=== PATIENT | male | born 1960 | race Caucasian/White ===

== ENCOUNTER 2017-03-27 03:42 | Observation (INO) | payer OTHER ==
[~2017-03-27 03:42] MED LIST: ASPIRIN325 MG PO; BREO ELLIPTA 11 EACH INH; LISINOPRIL10 MG PO; METAMUCIL1042 GM PO; NORCO 10/325 TA1 TA1 PO; NP THYROID PO; SYNTHROID200 MC1 PO
[2017-03-27 04:08] LABS: BASOPHILS 0 % (0-2); EOSINOPHILS 0.1 % (0-7); HEMATOCRIT 44.3 % (42.0-54.0); HEMOGLOBIN 15.4 g/dL (13.5-17.5); IMMATURE GRANULOCYTES 0.3 % (0-5); LYMPHOCYTES 8.6 % (15-50); MCH 33.1 pg (26.0-34.0); MCHC 34.8 g/dL (31.0-37.0); MCV 95.3 fL (80.0-100.0); MEAN PLATELET VOLUME 10.4 fL (7.4-10.4); MONOCYTES 5.9 % (2-11); NEUTROPHILS 85.1 % (40-80); PLATELET COUNT 187 10x3/uL (130-400); RBC 4.65 10x6/uL (4.20-6.10); RDW 12.9 % (11.5-14.5); WBC 14.5 10x3/uL (4.8-10.8)
[2017-03-27 04:41] LABS: ALBUMIN 3.7 g/dL (3.4-5.0); ALKALINE PHOSPHATASE 82 U/L (46-116); ALT (SGPT) 36 U/L (10-68); BILIRUBIN - TOTAL 0.37 mg/dL (0.2-1.3); CALC OSMOLALITY 283 mosm/kg (275-300); CALCIUM 8.9 mg/dL (8.5-10.1); CARBON DIOXIDE 30.1 mmol/L (21.0-32.0); CHLORIDE - SERUM 104 mmol/L (98-107); CHOL - HDL RATIO 5.6 ratio (2.3-4.9); CHOLESTEROL, TOTAL 156 mg/dL (0-200); CKMB 0.7 U/L (0.0-3.6); CREATINE KINASE 117 UL (21-232); CREATININE - SERUM 1.3 mg/dL (0.6-1.3); GLUCOSE 117 mg/dL (74-106); HDL CHOLESTEROL 28 mg/dL (32-96); POTASSIUM - SERUM 4.2 mmol/L (3.5-5.1); PROTEIN - SERUM 7.6 g/dL (6.4-8.2); SODIUM 142 mmol/L (136-145); THYROID STIMULATING HORMONE 13.71 uIU/mL (0.36-3.74); TRIGLYCERIDE 460 mg/dL (30-200); UREA NITROGEN 12 mg/dL (7-18); eGFR NON AFRICAN AMERICAN 60 mL/min (90-120)
[2017-03-27 04:45] LABS: TROPONIN-I < 0.017 ng/mL (0.000-0.060)
[2017-03-27 05:41] VITALS: BP 108/71; BMI 36.2
[2017-03-27 08:00] VITALS: BP 92/54
[2017-03-27 08:25] LABS: CKMB 0.3 U/L (0.0-3.6); CREATINE KINASE 107 UL (21-232); TROPONIN-I < 0.017 ng/mL (0.000-0.060)
[2017-03-27 12:00] VITALS: BP 104/62
--- NOTE | 2017-03-27 13:17 | NUR ---
IV AND TELEMETRY DCD. DC PLANS GIVEN. UNDERSTANDING VOICED. ESCORTED TO CAR BY W/C.
--- NOTE | 2017-04-08 16:56 | DS ---
PATIENT:ZAHEER WATSON :58 MEDICAL RECORD: [id number] DISCHARGE SUMMARY ADMISSION DATE: 03/27/17 DISCHARGE DATE: 03/27/17 DIAGNOSIS: Chest pain. HISTORY AND HOSPITAL COURSE: This is a gentleman who presents with chest pain; however, EKG is normal. Troponin is normal. He had a normal cardiac catheterization within the last year, most likely this is GI. No other cardiac workup is necessary. TRANSINT:[id number] Voice Confirmation ID: [id number] DOCUMENT ID: [id number] BRIT YA MD at 1656 CC: [id number] DICTATION DATE: 03/27/17 1408 NETWORK ENGINEERING ADVISOR: 03/28/17 0258 DIS IN 03/27/17 [id number] [place] [address]
--- NOTE | 2017-04-08 16:56 | HP ---
PATIENT: ZAHEER WATSON MEDICAL RECORD: [id number] ACCOUNT: [id number] LOCATION:[address] : 58 ADMISSION DATE: 03/27/17 HISTORY AND PHYSICAL EXAMINATION DIAGNOSES: 1. Chest pain. 2. Hypothyroidism on replacement. HISTORY: This is a gentleman who had a normal cardiac catheterization within the past year. He got a chest discomfort, was more epigastric, felt like he had to burp, discomfort became quite severe. His EKG is normal. His troponins are normal. PHYSICAL EXAMINATION: GENERAL APPEARANCE: Well-nourished, well-developed, appears stated age. Level of distress, comfortable. PSYCHIATRIC: Mental status, alert, normal affect. Orientation, oriented to time, place and person. EYES: Lids and conjunctiva, noninjected. No discharge, no pallor. ENT: Lips, teeth, gums, normal dentition. Oropharynx, no cyanosis, no pallor. NECK: Carotid arteries, bilateral normal upstroke, no bruits, no thrills. JUGULAR VEINS: No jugular venous pressure or distention. CERVICAL LYMPH NODES: Nontender, nonenlarged. THYROID: Not enlarged. Nontender. No nodules. LUNGS: Respiratory effort, unlabored. CHEST: Normal curvature. No thoracic deformity. No chest wall tenderness. Percussion, resonant. Auscultation, clear. No wheezes, no rales, no rhonchi. CARDIOVASCULAR: Precordial exam, nondisplaced. No heaves or pericardial thrills. Rate and rhythm, regular. Heart sounds, normal S1, normal S2. No S3, no gallop, no rub. Systolic murmur, not heard. Diastolic murmur, not heard. EXTREMITIES: No cyanosis, no edema. Peripheral pulses, full and equal in all extremities, except as noted. No bruits appreciated. ABDOMEN: Soft, nondistended. Normal aorta. No bruit. Nontender. No masses. Liver, nontender, no hepatomegaly. Spleen, nontender, no splenomegaly. MUSCULOSKELETAL: No joint tenderness. No joint swelling. No erythema. NEUROLOGICAL: Normal gait, normal strength, normal tone. SKIN: Warm and dry. REVIEW OF SYSTEMS: The patient reports easy bruising but reports no swollen glands. The patient reports no fever, no night sweats, no significant weight gain, no significant weight loss. No significant exercise tolerance. The patient reports no dry eyes, no irritation, no vision change. Patient reports no difficulty hearing and no ear pain. Patient reports no frequent nose bleeds or nose and sinus problems. Patient reports on arm pain on exertion. No shortness of breath while lying down. No history of heart murmur. Patient reports no cough, no wheezing or coughing up blood. Patient reports no abdominal pain, no vomiting. Normal appetite. No diarrhea and not vomiting blood. No nausea and no constipation. Patient reports no incontinence. No difficulty urinating. No hematuria. No increased frequency. Patient reports no muscle aches. No weakness, no arthralgias, no back pain. No swelling of the extremities. Patient reports no abnormal mole, no jaundice, no rashes. Reports no loss of consciousness. No weakness and no numbness. No seizures, dizziness, or headaches. The patient reports no depression, no sleep disturbance, feeling safe in a relationship and no alcohol abuse. Patient reports on fatigue. HISTORY AND PHYSICAL [id number] ZAHEER WATSON Reports no runny nose or sinus pressure. No itching, no hives, and no frequent sneezing. OVERALL IMPRESSION: Most likely this is secondary to GI and noncardiac with normal cardiac catheterization, normal troponin and normal EKG. At this time, no other cardiac workup is necessary. TRANSINT:[id number] Voice Confirmation ID: [id number] DOCUMENT ID: [id number] BRIT YA MD at 1656 CC: [id number] DICTATION DATE: 03/27/17 1408 GLASS BLOWER: 03/27/17 1721 DIS IN 03/27/17 [id number] [place] [address]
== END 2017-03-27 13:17 | disposition home or self-care (01) ==
LOC: D.ER 03:42 → OBSVTIME 04:44 → D.M2 04:44
PROVIDERS: Emergency Medicine; ADMIT Internal Medicine Interventional Cardiology
DX: R07.89 Other chest pain (principal); E03.9 Hypothyroidism, unspecified

== ENCOUNTER → 2017-04-11 08:09 | Outpatient (CLI) | payer OTHER ==
[2017-03-27 05:41] VITALS: BMI 36.2
[~2017-04-11 08:09] MED LIST changes: +BAYER CHEWABLE81 MG PO
== END | disposition home or self-care (01) ==
LOC: D.CT 08:09
DX: R91.8 Other nonspecific abnormal finding of lung field (principal); R93.8 Abnormal findings on diagnostic imaging of other specified body structures

== ENCOUNTER → 2017-05-24 09:51 | Outpatient (CLI) | payer OTHER ==
[2017-05-24 10:48] LABS: BASOPHILS 0.6 % (0-2); HEMATOCRIT 44.4 % (42.0-54.0); HEMOGLOBIN 15.5 g/dL (13.5-17.5); IMMATURE GRANULOCYTES 0.3 % (0-5); MCH 32.9 pg (26.0-34.0); MCHC 34.9 g/dL (31.0-37.0); MCV 94.3 fL (80.0-100.0); MEAN PLATELET VOLUME 10.4 fL (7.4-10.4); MONOCYTES 7.1 % (2-11); PLATELET COUNT 186 10x3/uL (130-400); RBC 4.71 10x6/uL (4.20-6.10); RDW 12.7 % (11.5-14.5); WBC 6.9 10x3/uL (4.8-10.8)
[2017-05-26 04:14] LABS: ANGIOTENSIN CONVERTING ENZYME 44 U/L (14-82)
[2017-06-01 17:11] LABS: FUNGAL - ASP FLAVUS Negative (Neg:<1:1); FUNGAL - ASP NIGER Negative (Neg:<1:1); FUNGAL - ASPER FUMIGATUS Negative (Neg:<1:1)
== END | disposition home or self-care (01) ==
LOC: D.CT 09:51 → D.OPS 10:00 → D.CT 11:00
PROVIDERS: Internal Medicine Cardiovascular Disease
DX: R91.8 Other nonspecific abnormal finding of lung field (principal)

== ENCOUNTER 2017-05-27 08:43 | Outpatient (CLI) | payer OTHER ==
[~2017-05-27] VITALS: Ht 180.3 cm; Wt 122.7 kg
[~2017-05-27 08:43] MED LIST changes: -BAYER CHEWABLE81 MG PO
[2017-05-27 10:36] LABS: BASOPHILS 0.3 % (0-2); EOSINOPHILS 2.8 % (0-7); HEMATOCRIT 45.8 % (42.0-54.0); HEMOGLOBIN 15.9 g/dL (13.5-17.5); IMMATURE GRANULOCYTES 0.3 % (0-5); LYMPHOCYTES 34.3 % (15-50); MCH 32.7 pg (26.0-34.0); MCHC 34.7 g/dL (31.0-37.0); MCV 94.2 fL (80.0-100.0); MEAN PLATELET VOLUME 10.6 fL (7.4-10.4); MONOCYTES 8.8 % (2-11); NEUTROPHILS 53.5 % (40-80); PLATELET COUNT 182 10x3/uL (130-400); RBC 4.86 10x6/uL (4.20-6.10); RDW 12.9 % (11.5-14.5); WBC 6.4 10x3/uL (4.8-10.8)
[2017-05-27] MEDS ORDERED: BAYER CHEWABLE81 MG PO (10:41)
[2017-05-27 10:44] LABS: APTT 30.4 SECONDS (22.8-39.4); INR 0.99 (0.85-1.17); PROTIME 12.7 SECONDS (11.6-15.0)
[2017-05-27 10:49] VITALS: BP 128/89; Ht 180.3 cm; Wt 122.7 kg
--- NOTE | 2017-05-27 12:45 | NUR ---
FULL LIQUID DIET SERVED.
--- NOTE | 2017-05-27 13:15 | NUR ---
TOLERATED FULL LIQUID DIET. IV REMOVED INTACT. DISCHARGE INSTRUCTIONS GIVEN, VOICED UNDERSTANDING.
[2017-05-28 19:08] LABS: AFB SPECIMEN PROCESSING Concentration (())
[2017-05-30 10:11] LABS: FUNGUS STAIN Final report (())
[2017-06-07 11:10] LABS: VIRAL - RESULT No virus isolated. (())
--- NOTE | 2017-06-09 14:06 | OP ---
PATIENT NAME: ZAHEER SAVAGE MEDICAL RECORD: [id number] :58 LOCATION:[facility] ADMISSION DATE: SURGEON: JALYN GRIJALVA MD DATE OF OPERATION: 05/27/2017 PROCEDURE: Fiberoptic bronchoscopy. INDICATION: Mr. Savage is a 57-year-old gentleman who has an abnormal CT scan with multiple new pulmonary nodules, some of them were decreasing in size. Fiberoptic bronchoscopy was carried out to inspect the airway and to obtain specimen for culture and sensitivity. MONITORING: EKG, pulse, and blood pressure were monitored throughout the procedure. MEDICATIONS: Versed 4 mg IV in divided doses, fentanyl 50 mcg IV, morphine 5 mg IM, and atropine 0.6 mg IM. PROCEDURE IN DETAIL: After obtaining the conscious sedation, the fiberoptic bronchoscope was passed through the mouth. The epiglottis was normal. The vocal cords were normal, moving equally on phonation. The pyriform sinuses were normal. The main trachea was normal. The jaylen was sharp. The right main bronchus was subsegment to the right upper lobe, right lower lobe within normal range. There were some bronchitic changes. The left main bronchus was normal, subsegment to the left upper lobe lingula. There was severe bronchitic change and they bled easily by touching by the bronchoscope. The left lower segment was within normal. There were also bronchitic changes. There were no endobronchial lesions or mass was seen. Overall, the patient tolerated the procedure very well. Specimen washing was obtained and sent for routine culture and sensitivity, AFB and fungus, viral, and cytology. TRANSINT:[id number] Voice Confirmation ID: [id number] DOCUMENT ID: [id number] JALYN GRIJALVA MD at 1406 CC: [id number] DICTATION DATE: 05/27/17 1151 DRILLER MACHINE: 05/27/17 1309 DEP CLI 05/27/17 [id number] [place] [address]
[2017-06-24 15:20] LABS: FUNGUS MYCOLOGY CULTURE Final report (())
[2017-07-15 13:17] LABS: ACID FAST CULTURE Negative (()); ACID FAST SMEAR Negative (())
== END 2017-05-27 13:25 | disposition home or self-care (01) ==
LOC: D.OPS 08:43
PROVIDERS: Internal Medicine Pulmonary Disease
DX: J40 Bronchitis, not specified as acute or chronic (principal); Z01.812 Encounter for preprocedural laboratory examination

== ENCOUNTER → 2017-09-23 15:48 | Outpatient (CLI) | payer OTHER ==
[2017-05-27 10:49] VITALS: BMI 37.7
[~2017-09-23 15:48] MED LIST changes: +BAYER CHEWABLE81 MG PO
== END | disposition home or self-care (01) ==
LOC: D.CT 15:48
DX: R91.8 Other nonspecific abnormal finding of lung field (principal)

== ENCOUNTER 2019-07-09 15:27 | Observation (INO) | payer BC ==
[~2019-07-09] VITALS: Ht 180.3 cm; Wt 118.2 kg
[2019-07-09] MEDS ORDERED: COZAAR25 MG PO (15:40)
[2019-07-09 15:54] LABS: BASOPHILS 0.6 % (0-2); HEMATOCRIT 47.9 % (42.0-54.0); IMMATURE GRANULOCYTES 0.3 % (0-5); LYMPHOCYTES 29.7 % (15-50); MCH 33.1 pg (26.0-34.0); MCHC 35.5 g/dL (31.0-37.0); MCV 93.2 fL (80.0-100.0); MEAN PLATELET VOLUME 10.1 fL (7.4-10.4); MONOCYTES 10.4 % (2-11); PLATELET COUNT 198 10x3/uL (130-400); RBC 5.14 10x6/uL (4.20-6.10); RDW 12.7 % (11.5-14.5); WBC 7.9 10x3/uL (4.8-10.8)
[2019-07-09 16:09] LABS: APTT 43.3 SECONDS (22.8-39.4); INR 1.01 (0.85-1.17); PROTIME 13.3 SECONDS (11.6-15.0)
[2019-07-09 16:10] LABS: CALC OSMOLALITY 272 mosm/kg (275-300); CALCIUM 9.3 mg/dL (8.5-10.1); CARBON DIOXIDE 31.2 mmol/L (21.0-32.0); CHLORIDE - SERUM 102 mmol/L (98-107); GLUCOSE 107 mg/dL (74-106); POTASSIUM - SERUM 3.9 mmol/L (3.5-5.1); SODIUM 137 mmol/L (136-145); UREA NITROGEN 11 mg/dL (7-18); eGFR NON AFRICAN AMERICAN 81 mL/min (90-120)
[2019-07-09 16:28] LABS: ALBUMIN 4.3 g/dL (3.4-5.0); ALKALINE PHOSPHATASE 78 U/L (30-120); ALT (SGPT) 32 U/L (10-68); BILIRUBIN - TOTAL 0.44 mg/dL (0.2-1.3); CKMB 0.7 U/L (0.0-3.6); CREATINE KINASE 135 UL (21-232); MAGNESIUM - SERUM 2.1 mg/dL (1.8-2.4); PROTEIN - SERUM 8.7 g/dL (6.4-8.2); TROPONIN-I < 0.017 ng/mL (0.000-0.060)
--- NOTE | 2019-07-09 16:43 | NUR ---
REPORTS RELIEF AFTER FIRST NITRO ADMINSTRATION. DOES NOT WANT ANY ADDITIONAL NITRO AT THIS TIME.
[2019-07-09 18:06] VITALS: BP 120/86; Ht 180.3 cm; Wt 118.2 kg
--- NOTE | 2019-07-09 19:20 | NUR ---
RECEIVED REPORT, WILL ASSUME CARE OF PT, SITTING UP IN BED, AT BEDSIDE, DENIES ANY NEEDS AT THIS TIME, BED IS LOW, SRX2, CALL LIGHT IN REACH, WILL CONTINUE PLAN OF CARE
[2019-07-09 20:44] VITALS: BP 136/91
[2019-07-09 22:16] LABS: CKMB 0.3 U/L (0.0-3.6); CREATINE KINASE 119 UL (21-232); TROPONIN-I < 0.017 ng/mL (0.000-0.060)
[2019-07-10 00:11] VITALS: BP 109/83
--- NOTE | 2019-07-10 03:48 | NUR ---
I have reviewed this patient and I concur with the Shift Assessment completed by the Licensed Practical Nurse today this shift.
[2019-07-10 03:55] VITALS: BP 123/76
[2019-07-10 06:01] LABS: BASOPHILS 0.8 % (0-2); EOSINOPHILS 2.4 % (0-7); HEMATOCRIT 44.7 % (42.0-54.0); HEMOGLOBIN 15.5 g/dL (13.5-17.5); IMMATURE GRANULOCYTES 0.3 % (0-5); LYMPHOCYTES 33.2 % (15-50); MCH 32.6 pg (26.0-34.0); MCHC 34.7 g/dL (31.0-37.0); MCV 94.1 fL (80.0-100.0); MEAN PLATELET VOLUME 10.6 fL (7.4-10.4); MONOCYTES 8.4 % (2-11); NEUTROPHILS 54.9 % (40-80); PLATELET COUNT 214 10x3/uL (130-400); RBC 4.75 10x6/uL (4.20-6.10); RDW 12.8 % (11.5-14.5); WBC 7.5 10x3/uL (4.8-10.8)
[2019-07-10 06:13] LABS: ALBUMIN 3.6 g/dL (3.4-5.0); ALKALINE PHOSPHATASE 67 U/L (30-120); ALT (SGPT) 30 U/L (10-68); BILIRUBIN - TOTAL 0.53 mg/dL (0.2-1.3); CALC OSMOLALITY 281 mosm/kg (275-300); CALCIUM 8.7 mg/dL (8.5-10.1); CARBON DIOXIDE 29.4 mmol/L (21.0-32.0); CHLORIDE - SERUM 104 mmol/L (98-107); CKMB 0.6 U/L (0.0-3.6); CREATINE KINASE 111 UL (21-232); GLUCOSE 97 mg/dL (74-106); POTASSIUM - SERUM 4.2 mmol/L (3.5-5.1); PROTEIN - SERUM 7.7 g/dL (6.4-8.2); SODIUM 141 mmol/L (136-145); TROPONIN-I < 0.017 ng/mL (0.000-0.060); eGFR NON AFRICAN AMERICAN 81 mL/min (90-120)
[2019-07-10 06:27] LABS: UREA NITROGEN 16 mg/dL (7-18)
[2019-07-10 08:00] VITALS: BP 134/85
[2019-07-10 10:19] LABS: CKMB 0.5 U/L (0.0-3.6); CREATINE KINASE 112 UL (21-232)
[2019-07-10 10:20] LABS: TROPONIN-I < 0.017 ng/mL (0.000-0.060)
[2019-07-10 11:25] VITALS: BP 101/77
--- NOTE | 2019-07-10 11:25 | HP ---
PATIENT: ZAHEER SAVAGE MEDICAL RECORD: [id number] ACCOUNT: [id number] LOCATION:[address] : 58 ADMISSION DATE: 07/09/19 PCP: GRETA LANGLEY MD HISTORY AND PHYSICAL EXAMINATION DIAGNOSES: 1. Chest pain. 2. Hypertension. 3. Paroxysmal atrial fibrillation. 4. Status post atrial fibrillation ablation. HISTORY OF PRESENT ILLNESS: Mr. Savage has had chest pain all day. There is some typical components such as a dull aching heavy sensation with radiation down his left arm; however, some atypical components. There is a positional component to this. He underwent cardiac catheterization approximately 3 years ago and was told this was normal. After that, he had his atrial fibrillation ablation. He has not had any palpitations with this. His EKG is with no ST-T abnormalities. OVERALL IMPRESSION: At this time, we will risk stratify with stress testing. Further care depends upon the findings of the stress test. TRANSINT:[id number] Voice Confirmation ID: [id number] DOCUMENT ID: [id number] BRIT YA MD at 1125 CC: [id number] DICTATION DATE: 07/09/19 1556 CLAIM MANAGER: 07/09/19 1643 ADM IN [address] [place] [address]
--- NOTE | 2019-07-10 12:16 | NUR ---
UPON ADMIT, SMILEY HAS NOT HAD A FLU SHOT. WHEN QUESTIONED, HE REFUSED ONE AT DISCHARGE.
--- NOTE | 2019-07-10 12:28 | NUR ---
PROVIDED VERBAL AND WRITTEN DISCHARGE TEACHING TO PT AND SPOUSE, BOTH VERBALIZED UNDERSTANDING REGARDING TEACHING. LT WRIST IV REMOVED WITH CATHETER TIP INTACT. PT REFUSED TO BE WHEELED OUT. LEFT UNIT VIA AMBULATORY WITH ALL BELONGINGS, NAD NOTED.
--- NOTE | 2019-07-11 09:27 | MORECARE ---
CASE MANAGEMENT DISCHARGE SUMMARY PATIENT: ZAHEER WATSON UNIT: [id number] ADM DATE: 07/09/19 AGE: 59 : 58 SEX: M ROOM/BED: D.2123 AUTHOR: ARCHANA FULLER PHYSICIAN: REFERRING PHYSICIAN: BRIT YA MD DATE OF SERVICE: 07/11/19 Discharge Plan Patient Name: ZAHEER WATSON [facility] [facility] 1960 Planned Disposition: Home Anticipated Discharge Date: 07/10/19 Discharge Date: 07/10/2019 Expected LOS: 1 Initial Reviewer: [email or web address] Initial Review Date: 07/11/2019 Generated: 07/11/19 10:26 am Patient Name: ZAHEER WATSON Page [id number] at 0927 All edits/amendments must be made on the electronic document DICTATION DATE: 07/11/19925 SILK CREPE MACHINE OPERATOR: MILAGROS 07/11/19925 RPT#: [id number] DC DATE:07/10/19 STATUS: DIS IN [facility] [address] [facility] [place] [address] END OF REPORT
--- NOTE | 2019-07-12 12:54 | DS ---
PATIENT:ZAHEER SAVAGE :58 MEDICAL RECORD: [id number] DISCHARGE SUMMARY ADMISSION DATE: 07/09/19 DISCHARGE DATE: 07/10/19 DATE OF DISCHARGE: 07/10/2019 DIAGNOSES: 1. Chest pain. 2. Normal nuclear stress test. HOSPITAL COURSE: Mr. Savage had chest discomfort of unknown etiology; however, stress testing was normal. Discharged home. No cardiac followup unless he has recurrent chest pain. TRANSINT:[id number] Voice Confirmation ID: [id number] DOCUMENT ID: [id number] BRIT YA MD at 1254 CC: [id number] DICTATION DATE: 07/10/19 1138 MEDICAL EDITOR: 07/11/19 0012 DIS IN 07/10/19 [address] [place] [address]
--- NOTE | 2019-07-12 12:54 | ST ---
PATIENT:ZAHEER WATSON MEDICAL RECORD: [id number] SEX: M LOCATION:[address] ORDER #: ADMISSION DATE: 07/09/19 AGE OF PATIENT: 59 REFERRING PHYSICIAN: INTERPRETING PHYSICIAN: BRIT YA MD DATE OF SERVICE: 07/10/2019 PROCEDURE: Exercise stress test. INDICATIONS: Chest pain of unknown etiology. He was exercised on standard Ramses protocol for 5 minutes achieving 85% max target heart rate response with no EKG changes, no dysrhythmias, no angina. OVERALL IMPRESSION: Negative for inducible ischemia at adequate cardiac workload. TRANSINT:[id number] Voice Confirmation ID: [id number] DOCUMENT ID: [id number] BRIT YA MD at 1254 CC: [id number] DICTATION DATE: 07/10/19 1138 DELIVERY ARCHITECT: 07/11/19 0010 DIS IN 07/10/19 [id number] [place] [address]
== END 2019-07-10 12:30 | disposition home or self-care (01) ==
LOC: D.ER 15:27 → D.M2 16:34 → OBSVTIME 16:34 → D.M2 07-10 12:30
PROVIDERS: Family Medicine; ADMIT Internal Medicine Interventional Cardiology; ATTEND Internal Medicine Interventional Cardiology
DX: R07.9 Chest pain, unspecified (principal); I10 Essential (primary) hypertension; I48.0 Paroxysmal atrial fibrillation